=== PATIENT | female | born 1985 | race Caucasian/White ===

== ENCOUNTER 2016-10-16 19:19 | Emergency (ER) | payer MEDICAID ==
[~2016-10-16] VITALS: Ht 152.4 cm; Wt 73.0 kg
[2016-10-16] MEDS ORDERED: IPRATROPIUM/ALBUTEROL 0.5-3(2.5)MG/3ML NEB HHN ONE (21:30)
[2016-10-16] MEDS ORDERED: PREDNISONE 20MG TABLET PO SCH (22:45)
[2016-10-16 23:24] VITALS: BP 132/84
== END 2016-10-16 23:27 | disposition home or self-care (01) ==
LOC: ER 22:06
DX: R05 Cough (principal); R06.2 Wheezing; R06.02 Shortness of breath
CPT/HCPCS: 71020; 81025; 94640; 99284; J7512; J7620

== ENCOUNTER 2018-05-19 15:51 | Emergency (ER) | payer MEDICAID ==
[~2018-05-19] VITALS: Ht 152.4 cm; Wt 68.0 kg
[2018-05-19] MEDS ORDERED: IBUPROFEN 600MG TABLET PO ONE (16:45)
[2018-05-19 17:00] VITALS: BP 141/77
== END 2018-05-19 18:58 | disposition home or self-care (01) ==
LOC: ER 15:51
DX: M25.562 Pain in left knee (principal); M25.532 Pain in left wrist; W01.0XXA Fall on same level from slipping, tripping and stumbling without subsequent striking against object, initial encounter; Y93.89 Activity, other specified; Y92.012 Bathroom of single-family (private) house as the place of occurrence of the external cause
CPT/HCPCS: 73110; 73130; 73560; 81025; 99283

== ENCOUNTER 2021-05-13 11:41 | Emergency (ER) | payer MEDICAID ==
[~2021-05-13] VITALS: Ht 157.5 cm; Wt 92.0 kg
[2021-05-13 12:31] VITALS: BP 153/93
[2021-05-13] MEDS ORDERED: ALBU90AE INH (12:37)
== END 2021-05-13 13:50 | disposition home or self-care (01) ==
LOC: ER 11:41
DX: Z76.0 Encounter for issue of repeat prescription (principal); J45.909 Unspecified asthma, uncomplicated
CPT/HCPCS: 99282